=== PATIENT | female | born 1990 | race Caucasian/White ===

== ENCOUNTER 2016-05-30 06:48 | Day surgery (SDC) | payer OTHER ==
[~2016-05-30 06:48] MED LIST: CEFAZOLIN 1 GM/D5W RTU 1 GM/50 ML RTUPB IV PRN; CEFAZOLIN 2 GM/D5W RTU 2 GM/50 ML RTUPB IV PRN
[2016-05-30] MEDS ORDERED: LIDOCAINE 1%/EPINEPHRINE INJ 20 ML VIAL ONE (08:21)
[2016-05-30] MEDS ORDERED: BUPIVACAINE HCL 0.25 % INJ/PF (2.5 MG/1 ML) 30 ML VIAL ONE (08:21)
[2016-05-30] MEDS ORDERED: MIDAZOLAM 2 MG/2 ML INJ ONE (09:20)
[2016-05-30] MEDS ORDERED: FENTANYL CITRATE INJ/PF 100 MCG/2 ML AMPUL ONE (09:21)
[2016-05-30] MEDS ORDERED: PROPOFOL INJ 200 MG/20 ML VIAL IV ONE (09:21)
[2016-05-30] MEDS ORDERED: ACETAMINOPHEN 100 ML IV ONE (09:21)
[2016-05-30] MEDS ORDERED: CLINDAMYCIN 600 MG/D5W RTU 600 MG/50 ML RTUPB IV ONE (09:26)
[2016-05-30] MEDS ORDERED: MORPHINE SULFATE 10 MG/ML INJ IV PRN (09:45)
[2016-05-30] MEDS ORDERED: FENTANYL CITRATE INJ/PF 100 MCG/2 ML AMPUL IV PRN ×3 (09:45)
[2016-05-30] MEDS ORDERED: DIPHENHYDRAMINE HCL 50 MG/ML VIAL IV PRN (09:45)
[2016-05-30] MEDS ORDERED: PROMETHAZINE HCL INJ 25 MG/1 ML VIAL IV PRN ×2 (09:45)
[2016-05-30] MEDS ORDERED: MEPERIDINE HCL/PF INJ 25 MG/1 ML DISP.SYRIN IV PRN (09:45)
[2016-05-30] MEDS ORDERED: OXYCODONE-ACETAMINOPHEN 5-325 MG TABLET PO PRN ×2 (09:45)
--- NOTE | 2016-05-30 09:55 | Operative Report ---
Operative Report DATE OF SURGERY: 05/30/16 PREOPERATIVE DIAGNOSIS: Left volar wrist ganglion OPERATION: Excision left volar wrist ganglion SURGEON: RHONDA HUFF ANESTHESIA: LMAC TISSUE REMOVED OR ALTERED: Specimen 1 to pathology PROCEDURE: With the patient supine on the operating table left upper extremity is prepped and draped in a sterile fashion. Xylocaine, Marcaine, and epinephrine are infiltrated subcutaneously overlying the radial aspect of the radiocarpal crease. A 2 cm longitudinal incisions made overlying the palpable mass. Blunt dissection was used, carried incision down through the subcutaneous tissue to the foot flexor retinaculum and then down around the mass itself us at dove towards the underlying articular joint. It's truncated and space and delivered from the field. Sent to pathology. The wound is irrigated. Hemostasis obtained with Vicryl followed cautery. The wound is then closures interrupted Vicryl followed by Steri-Strips and Dermabond. A sterile compressive dressing was applied and the patient's returned to PACU
[2016-05-30] MEDS ORDERED: OXYCODONE HCL IR 5 MG TABLET PO PRN (10:11)
[2016-05-30] MEDS ORDERED: ONDANSETRON 4 MG TAB.RAPDIS PO PRN (10:12)
--- NOTE | 2016-05-30 14:03 | EKG REPORT ---
SEVERITY:- OTHERWISE NORMAL ECG - SINUS RHYTHM BORDERLINE LEFT AXIS DEVIATION : Confirmed by: Antonio Cuevas MD 30-May-2016 14:02:55
[2016-05-31 07:39] VITALS: BP 120/75
== END 2016-05-30 12:10 | disposition home or self-care (01) ==
LOC: OROUT 06:48
PROVIDERS: ATTEND Orthopaedic Surgery
PROC: 0RBP0ZZ Excision of Left Wrist Joint, Open Approach (ICD-10-PCS; principal; 2016-05-30 09:00)
DX: M25.532 Pain in left wrist (principal); F17.210 Nicotine dependence, cigarettes, uncomplicated; M67.432 Ganglion, left wrist; Z79.899 Other long term (current) drug therapy; Z88.0 Allergy status to penicillin; Z91.040 Latex allergy status
CPT/HCPCS: 81025; 88304 ×2; 71010; 93005; 93010; 25111; J2250; J3490; J2704; J0131; J3010

== ENCOUNTER 2016-06-04 00:08 | Emergency (ER) | payer OTHER ==
[2016-06-04 00:23] VITALS: BP 117/62
== END 2016-06-04 01:35 | disposition left against medical advice (07) ==
LOC: ER 00:08
DX: Z53.21 Procedure and treatment not carried out due to patient leaving prior to being seen by health care provider (principal)